=== PATIENT | female | born 1955 | race Two or more races ===

== ENCOUNTER 2017-11-15 00:26 | Emergency (ER) | payer OTHER ==
[~2017-11-15] VITALS: Ht 157.5 cm; Wt 64.3 kg
[2017-11-15 00:47] LABS: APPEARANCE CLEAR ((CLEAR)); BILIRUBIN NEGATIVE; BLOOD NEGATIVE; COLOR COLORLESS ((YELLOW)); GLUCOSE (STRIP) NEGATIVE; KETONES NEGATIVE; LEUKOCYTES NEGATIVE; NITRITE NEGATIVE; PROTEIN (STRIP) NEGATIVE; SPECIFIC GRAVITY 1.003 (1.000-1.030); UCUL ADDED? NO; UROBILINOGEN 0.2 MG/DL (0.2-1.0)
[2017-11-15 01:07] LABS: HEMATOCRIT 45.7 % (36.0-46.0); HEMOGLOBIN 15.7 G/DL (11.9-15.5); MCH 28.7 PG (29.0-34.0); MCHC 34.4 G/DL (30.0-36.0); MCV 83.5 FL (83-99); PLATELET COUNT 173 K/uL (156-360); RBC DIS.WIDTH-CV 12.3 % (11.8-14.6); RBC DIS.WIDTH-SD 36.9 % (39-53); RED BLOOD COUNT 5.47 M/uL (3.80-5.20); WHITE BLOOD COUNT 6.3 K/uL (4.1-10.2)
[2017-11-15 01:15] LABS: CHLORIDE 108 mEq/L (99-109); POTASSIUM 4.3 mEq/L (3.7-5.4); SODIUM 144 mEq/L (136-147)
[2017-11-15 01:17] LABS: GLUCOSE 108 mg/dL (70-99)
[2017-11-15 01:21] LABS: GFR ESTIMATE (CALCULATED) > 59 mL/min/
[2017-11-15 01:22] LABS: UREA NITROGEN (BUN) 18 mg/dL (9-23)
[2017-11-15 01:27] LABS: TROP-I INTERPRETATION NEGATIVE; TROPONIN-I < 0.01 ng/mL (0.0-0.30)
[2017-11-15] MEDS ORDERED: HYDROCHLOROTH12.5 M3 PO (02:37)
[2017-11-15 02:49] VITALS: BP 142/114
== END 2017-11-15 02:50 | disposition home or self-care (01) ==
LOC: EME 00:26
DX: I10 Essential (primary) hypertension (principal); T40.2X5A Adverse effect of other opioids, initial encounter; K21.9 Gastro-esophageal reflux disease without esophagitis; E78.5 Hyperlipidemia, unspecified
CPT/HCPCS: 71046; 80048; 81003; 84484; 85027; 93005; 99281; 99284